=== PATIENT | female | born 1985 | race Caucasian/White ===

== ENCOUNTER 2022-12-06 09:31 | Inpatient (IN) | payer OTHER ==
[~2022-12-06] VITALS: Ht 165.1 cm; Wt 69.4 kg
[2022-12-06 09:52] VITALS: BP 123/74
[2022-12-06 10:47] LABS: APPEARANCE,URINE CLEAR (CLEAR); BILIRUBIN,URINE 3+ (NEGATIVE); BLOOD, URINE 3+ (NEGATIVE); COLOR,URINE YELLOW (YELLOW); LEUKOCYTE ESTERASE ,URINE NEGATIVE (NEGATIVE); NITRITE, URINE NEGATIVE (NEGATIVE); UGLUCOSE NEGATIVE (NEGATIVE)
[2022-12-06 10:58] LABS: WBC,URINE 0-5 /HPF (0-5)
--- NOTE | 2022-12-06 12:02 | NUR ---
PT AMB TO BED 12.
--- NOTE | 2022-12-06 12:06 | NUR ---
AMB TO BED 9
--- NOTE | 2022-12-06 12:09 | NUR ---
ASSUMED PATIENT CARE, NURSING ASSESSMENT COMPLETED.
--- NOTE | 2022-12-06 12:24 | NUR ---
MD AT BEDSIDE, MSE COMPLETED.
[2022-12-06] MEDS ORDERED: LIDOCAINE MPF 2% 100 MG/5 ML VIAL INJ ONE ×2 (12:25→12:35)
[2022-12-06] MEDS ORDERED: MORPHINE SULFATE 4 MG/ML SYR IVP ONE (12:35)
[2022-12-06] MEDS ORDERED: ONDANSETRON 4 MG/2 ML VIAL IVP ONE (12:35)
[2022-12-06 13:10] LABS: BASOPHILS % (AUTO) 0.2 % (0.0-2.0); EOSINOPHILS # (AUTO) 0.1 K/uL (0-0.4); EOSINOPHILS % (AUTO) 0.6 % (0.0-4.0); HEMATOCRIT 41.6 % (36-48); HEMOGLOBIN 13.8 g/dL (12.0-16.0); LYMPHOCYTES # (AUTO) 2.4 K/uL (2.5-16.5); LYMPHOCYTES % (AUTO) 11.8 % (20.5-51.1); MEAN CORPUSCULAR HEMOGLOBIN 31 pg (27-31); MEAN CORPUSCULAR HGB CONC 33 g/dL (33-37); MEAN CORPUSCULAR VOLUME 92.6 fL (80-94); MONOCYTES # (AUTO) 1.2 K/uL (0.8-1.0); MONOCYTES % (AUTO) 5.9 % (1.7-9.3); NEUTROPHILS # (AUTO) 16.3 K/uL (1.8-7.7); NEUTROPHILS % (AUTO) 81.5 % (42.2-75.2); PLATELET COUNT (AUTO) 294 K/uL (140-450); RED BLOOD CELL COUNT(AUTO) 4.49 MIL/uL (4.20-5.40); RED CELL DISTRIBUTION WIDTH 13.9 % (11.6-13.7); WHITE BLOOD COUNT (AUTO) 20.1 K/uL (4.8-10.8)
[2022-12-06 13:33] LABS: ANION GAP 11.6 (8-16); CARBON DIOXIDE 26.3 mmol/L (21-32); CREATININE 0.8 mg/dL (0.6-1.3); POTASSIUM 3.9 mmol/L (3.5-5.1); TOTAL BILIRUBIN 0.3 mg/dL (0.0-1.0)
[2022-12-06] MEDS ORDERED: PIPERACILLIN/TAZOBACTAM 3.375 GM in DEXTROSE 5% 50 ML IV ONE (13:35)
[2022-12-06] MEDS ORDERED: PIPERACILLIN/TAZOBACTAM 3.375 GM VIAL IV ONE (15:00)
[2022-12-06] MEDS ORDERED: KETOROLAC 30 MG/ML VIAL IVP ONE (15:15)
--- NOTE | 2022-12-06 16:06 | NUR ---
REMEDICATED WITH TORADOL FOR PAIN.
[2022-12-06] MEDS ORDERED: POTASSIUM CHLORIDE 10 MEQ TABER PO PRN (18:15)
[2022-12-06] MEDS ORDERED: ACETAMINOPHEN 325 MG TAB PO PRN (18:15)
[2022-12-06] MEDS ORDERED: LORazepam 2 MG/ML VIAL IVP PRN (18:15)
[2022-12-06] MEDS ORDERED: DOCUSATE SODIUM 100 MG GELCAP PO PRN (18:15)
[2022-12-06] MEDS ORDERED: ZOLPIDEM 10 MG TAB PO PRN (18:15)
[2022-12-06] MEDS ORDERED: MAG SULF 2000 MG/WATER PREMIX 50 ML IV PRN (18:15)
[2022-12-06] MEDS: ONDANSETRON 4 MG/2 ML VIAL IVP PRN (18:38)
[2022-12-06] MEDS: MORPHINE SULFATE 2 MG/ML SYR IVP PRN (18:38)
[2022-12-06] MEDS: NACL 0.9% 1,000 ML IV SCH (18:39)
[2022-12-06] MEDS ORDERED: BUPIVACAINE-MPF/EPI 0.25% 10 ML VIAL INJ ONE (18:48)
[2022-12-06] MEDS ORDERED: LIDOCAINE 2% 1000 MG/50 ML VIAL INJ ONE (18:48)
[2022-12-06] MEDS ORDERED: HYDROGEN PEROXIDE 3% 240 ML BTL TP ONE (18:49)
--- NOTE | 2022-12-06 18:57 | NUR ---
DISPO AND MEDICAL DECISION MAKING, TRANSFERRED TO OR FOR SURGERY. PATIENT CARE REPORT ENDORSED TO OR NURSE. PATIENT UPDATED ACCORDINGLY.
[2022-12-06 19:03] LABS: PROTHROMBIN TIME 10.1 secs (10.8-13.4)
[2022-12-06] MEDS ORDERED: fentaNYL citrate 0.05 MG/ML VIAL ONE (19:35)
[2022-12-06] MEDS ORDERED: PROPOFOL 200 MG/20 ML VIAL IV ONE (19:55)
[2022-12-06] MEDS ORDERED: METOCLOPRAMIDE 10 MG/2 ML INJ VIAL ONE (19:55)
[2022-12-06] MEDS ORDERED: SUCCINYLCHOLINE CHLORIDE 200 MG/10 ML VIAL IVP ONE (19:55)
[2022-12-06] MEDS ORDERED: KETOROLAC 30 MG/ML VIAL ONE (19:55)
[2022-12-06] MEDS ORDERED: ONDANSETRON 4 MG/2 ML VIAL ONE (19:55)
[2022-12-06] MEDS ORDERED: DEXAMETHASONE 4 MG/ML VIAL ONE ×2 (19:56)
[2022-12-06] MEDS ORDERED: HYDROcodone/APAP 5/325 MG 1 TAB TAB PO PRN (20:10)
[2022-12-06] MEDS ORDERED: LABETALOL 20 MG/4 ML VIAL IVP PRN (20:16)
[2022-12-06] MEDS ORDERED: hydrALAZINE 20 MG/ML VIAL IVP PRN (20:16)
[2022-12-06] MEDS ORDERED: HYDROmorphone 1 MG/ML AMP IVP PRN (20:20)
[2022-12-06] MEDS ORDERED: PIPERACILLIN/TAZOBACTAM 2.25 GM VIAL IV ONE (20:50)
--- NOTE | 2022-12-06 20:55 | NUR ---
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 ADMISSION QUESTIONS DONE AND DOCUMENTED. PATIENT DENIES PAIN AT THIS TIME. DENIES SHORTNESS OF BREATH. SKIN WARM AND DRY TO TOUCH. JOSE-ANAL PACKING WITH PANTY MESH ON,. SKIN WARM AND DRY TO TOUCH. UPDATED WHITEBOARD, CALL LIGHT GIVEN TO PT WITH INSTRUCTION OF USE.
[2022-12-06] MEDS: PIPERACILLIN/TAZOBACTAM 2.25 GM in DEXTROSE 5% 50 ML IV SCH (21:00)
[2022-12-06] MEDS: LACTATED RINGERS 1,000 ML IV SCH (21:17)
[2022-12-07] VITALS: BP 104/57
[2022-12-07] MEDS ORDERED: PIPERACILLIN/TAZOBACTAM 2.25 GM VIAL IV ONE (04:01)
[2022-12-07] MEDS: NACL 0.9% 1,000 ML IV SCH (04:11)
[2022-12-07] MEDS: PIPERACILLIN/TAZOBACTAM 2.25 GM in DEXTROSE 5% 50 ML IV SCH ×3 (04:11→20:10)
[2022-12-07] MEDS: LACTATED RINGERS 1,000 ML IV SCH ×2 (06:20→16:39)
--- NOTE | 2022-12-07 06:22 | NUR ---
PATIENT IS ASLEEP. NO DISTRESS NOTED. ALL NEEDS ATTENDED TO. SAFETY PRECAUTIONS IN PLACE, CALL LIGHT REMAINS WITHIN REACH.
--- NOTE | 2022-12-07 06:44 | NUR ---
REMOVED PACKING FROM JOSE-ANAL AREA, CLEANSED WITH NS AND APPLIED NEW DRESSING ORDERED. PATIENT TOLERATED WELL.
[2022-12-07 07:30] LABS: ANION GAP 14.1 (8-16); CARBON DIOXIDE 25.5 mmol/L (21-32); CREATININE 0.8 mg/dL (0.6-1.3); POTASSIUM 4.6 mmol/L (3.5-5.1)
[2022-12-07 07:33] LABS: BASOPHILS % (AUTO) 0.1 % (0.0-2.0); HEMATOCRIT 37.7 % (36-48); HEMOGLOBIN 12.7 g/dL (12.0-16.0); LYMPHOCYTES # (AUTO) 1.2 K/uL (2.5-16.5); LYMPHOCYTES % (AUTO) 7.7 % (20.5-51.1); MEAN CORPUSCULAR HEMOGLOBIN 31 pg (27-31); MEAN CORPUSCULAR HGB CONC 34 g/dL (33-37); MEAN CORPUSCULAR VOLUME 91.6 fL (80-94); MONOCYTES # (AUTO) 0.4 K/uL (0.8-1.0); MONOCYTES % (AUTO) 2.8 % (1.7-9.3); NEUTROPHILS # (AUTO) 14.4 K/uL (1.8-7.7); NEUTROPHILS % (AUTO) 89.4 % (42.2-75.2); PLATELET COUNT (AUTO) 264 K/uL (140-450); RED BLOOD CELL COUNT(AUTO) 4.12 MIL/uL (4.20-5.40); RED CELL DISTRIBUTION WIDTH 13.7 % (11.6-13.7); WHITE BLOOD COUNT (AUTO) 16.1 K/uL (4.8-10.8)
[2022-12-07 08:00] VITALS: BP 105/58
--- NOTE | 2022-12-07 09:18 | NUR ---
PATIENT HAS BEEN SCREENED AND CATEGORIZED LOW NUTRITION RISK. PATIENT WILL BE SEEN WITHIN 7 DAYS OF ADMISSION. 12/13/[address] REVIEW[address] BY [address]
--- NOTE | 2022-12-07 15:29 | NUR ---
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 ADVISED NURSE OF THIS AND INFORMED HER THAT PT WILL NEED WOUND CARE TRAINING AND EXTRA SUPPLIES UPON DISCHARGE.
--- NOTE | 2022-12-07 16:41 | NUR ---
DC PLANNING ASSESSMENT COMPLETE PLEASE REFER TO ASSESSMENT FOR ADDITIONAL DETAILS PT PRIMARILY RUSSIAN SPEAKING THEREFORE, EGG PACKER UTILIZED; [id number] PT IS A 36 YR OLD FEMALE ADMITTED TO [facility] FROM HOME WITH DX OF ABSCESS. PT REPORTS BEING INDEPENDENT IN ALL ACTIVITIES AND DENIES USE OF DME. PT REPORTS SHE IS CURRENTLY VISITING FROM [place]. PT REPORTS SHE WILL BE DEPARTING BACK TO [place] ON DECEMBER 11, 2022 PT REPORTS TENTATIVE DC PLAN IS TO DC HOME WITH FRIEND PROVIDING TRANSPORTATION WHEN MEDICALLY STABLE. Addendum: 12/07/22 at 1643 by Nikki BRADLEY Amended: Links added.
--- NOTE | 2022-12-07 18:00 | NUR ---
PATIENT HAD AN UNEVENTFUL DAY, NO REQUEST FOR PAIN MEDS. SITZ BATH GIVEN AND DRESSING CHANGED TO SURGICAL SITE. PATIENT CONTINUES ON IV FLUIDS AND IV ANTIBIOTICS. RESTING QUIETLY IN BED. SAFETY MAINTAINED THIS SHIFT. CONTINUE WITH POC.
--- NOTE | 2022-12-07 19:30 | NUR ---
RECEIVED PT IS AWAKE,A LERT AND ORIENTED X 4.DENIES PAIN AT THIS TIME. FAMILY AT THE BEDSIDE. NO ACUTE RESPIRATORY DISTRESS. SKIN WARM AND DRY TO TOUCH. IVF INFUSING WELL ORDERED.SAFETY PRECAUTION IN PLACE, CALL LIGHT IN REACH. CHANGED IV TO THE LEFT FOREARM GAUGE 22. PREVIOUS IV SITE REMOVED WITH INTACT CANNULA.
[2022-12-08] VITALS: BP 110/57
[2022-12-08] MEDS: LACTATED RINGERS 1,000 ML IV SCH (02:14)
[2022-12-08] MEDS: MORPHINE SULFATE 2 MG/ML SYR IVP PRN ×2 (03:54→11:16)
[2022-12-08] MEDS: PIPERACILLIN/TAZOBACTAM 2.25 GM in DEXTROSE 5% 50 ML IV SCH ×2 (04:28→13:03)
--- NOTE | 2022-12-08 06:11 | NUR ---
PATIENT IS ASLEEP, EASILY AROUSABLE BY VERBAL STIMULI. REFUSED WOUND DRESSING CHANGE AT THIS TIME. DENIES PAIN. ALL NEEDS ATTENDED TO. SAFETY PRECAUTIONS MAINTAINED DURING THE SHIFT, CALL LIGHT REMAINS WITHIN REACH.
[2022-12-08 07:29] LABS: BASOPHILS % (AUTO) 0.4 % (0.0-2.0); EOSINOPHILS # (AUTO) 0.1 K/uL (0-0.4); EOSINOPHILS % (AUTO) 0.8 % (0.0-4.0); HEMATOCRIT 34.8 % (36-48); HEMOGLOBIN 11.7 g/dL (12.0-16.0); LYMPHOCYTES # (AUTO) 3.3 K/uL (2.5-16.5); LYMPHOCYTES % (AUTO) 35.6 % (20.5-51.1); MEAN CORPUSCULAR HEMOGLOBIN 31 pg (27-31); MEAN CORPUSCULAR HGB CONC 34 g/dL (33-37); MEAN CORPUSCULAR VOLUME 92.4 fL (80-94); MONOCYTES # (AUTO) 0.7 K/uL (0.8-1.0); MONOCYTES % (AUTO) 7.2 % (1.7-9.3); NEUTROPHILS # (AUTO) 5.1 K/uL (1.8-7.7); PLATELET COUNT (AUTO) 245 K/uL (140-450); RED BLOOD CELL COUNT(AUTO) 3.77 MIL/uL (4.20-5.40); RED CELL DISTRIBUTION WIDTH 13.6 % (11.6-13.7); WHITE BLOOD COUNT (AUTO) 9.2 K/uL (4.8-10.8)
[2022-12-08 07:54] LABS: ANION GAP 12.7 (8-16); CARBON DIOXIDE 26.1 mmol/L (21-32); CREATININE 0.8 mg/dL (0.6-1.3); POTASSIUM 3.8 mmol/L (3.5-5.1)
[2022-12-08 08:00] VITALS: BP 118/79
[2022-12-08] MEDS: ONDANSETRON 4 MG/2 ML VIAL IVP PRN (11:15)
== END 2022-12-08 16:00 | disposition home or self-care (01) | DRG 395 ==
LOC: MED 09:31 → MMU 18:14 → MTU 18:48
PROVIDERS: ADMIT Family Medicine; ATTEND Family Medicine
PROC: 0D9Q3ZZ Drainage of Anus, Percutaneous Approach (ICD-10-PCS; principal; 2022-12-06 19:00)
DX: K61.0 Anal abscess (principal); D72.829 Elevated white blood cell count, unspecified; D72.810 Lymphocytopenia; E83.51 Hypocalcemia; Z20.822 Contact with and (suspected) exposure to COVID-19
CPT/HCPCS: 36415; 72194; 80048; 80053; 81001; 83605; 83735; 85025; 85610; 85651; 85730; 86140; 86886; 86900; 86901; 87040; 87070; 87075; 87081; 87205; 96365; 96375; 99285; J0330; J1100; J1885; J2001; J2270; J2405; J2543; J2704; J2765; J3010; J3475; J3490; J7060; Q9967